=== PATIENT | female | born 1975 | race Caucasian/White ===

== ENCOUNTER → 2022-03-21 | Outpatient (CLI) | payer OTHER, SELFPAY ==
--- NOTE | 2022-03-21 | IMM_PTH ---
PATIENT: AKIN ALFORD LOC: [facility] U#:[id number] AGE/SX: 47/F ROOM: RE03/21/[address]: Dr. Carlos Rasmussen MD : 1975 BED: DIS: 03/21/2022 SPEC #: [id number] RECD: 03/22/22 13:29 STATUS: THUAN REQ #: [id number] SHERWIN: 03/21/22 00:[address]: Carlos Rasmussen DEPT: IMMUNOHISTOCHEMISTRY RECD BY: Lynne Lin ENTERED: 03/22/22 13:31 SP TYPE: IMMUNO OTHR DR: Dr. Patti Staton DO Tissues: Right breast, NOS Procedures: SMA (add) CALPONIN-1 (add) CK5-6 (add) CK7 (add) P53 (add) Pankeratin (initial) P40 (add) PHYSICIAN & INSTITUTION [place] [id number] SPECIMEN INFORMATION: Tissue Source: Right breast Clinical Info: Grouped pleomorphic calcifications in right breast Specimen Number: [id number] #2 CPT code: 05969, 16203 x6 METHODOLOGY: Deparaffinized sections of prefer/formalin-fixed tissue or PAP/DQ stained slides are incubated with monoclonal/polyclonal antibodies/oligonucleotide probes. Localization is made via biotin free immunoperoxidase method. Appropriate controls are performed and reacted as expected. Results on target cell population are indicated in the following table: RESULTS: ANTIBODY / CLONE RESULT Block 2 AE1-3 (AE1/AE3/PCK26) positive CK7 (OV-TL12/30) positive Calponin-1 (UW576C) positive Actin (1A4) positive CK5-6 (D5 & 1684) positive P40 (BC28) positive P53 (DO-7) negative These tests were developed and their performance characteristics determined by [facility]. They may not have been cleared or approved by the U.S. Food and Drug Administration. The FDA has determined that such clearance or approval is not necessary. The above immunohistochemical/dualISH markers are ordered and reviewed by the Pathologist. INTERPRETATION: Right breast, stereotactic biopsy: Consistent with adenosis. AM:margaret 03/23/2022
--- NOTE | 2022-03-21 12:45 | BRBX_PTH ---
PATIENT: AKIN ALFORD LOC: [facility] U#:[id number] AGE/SX: 47/F ROOM: RE03/21/[address]: Dr. Carlos Rasmussen MD : 1975 BED: DIS: 03/21/2022 SPEC #: [id number] RECD: 03/21/22 13:20 STATUS: THUAN REIsael #: [id number] SHERWIN: 03/21/22 12:[address]: Carlos Rasmussen DEPT: SURGICAL PATHOLOGY RECD BY: Tatum Jackson ENTERED: 03/21/22 14:01 SP TYPE: BREAST BX OTHR DR: Dr. Patti Staton, DO Tissues: Right breast, NOS Procedures: Surgery Specimen Level IV HEADER OPERATION: Right breast stereotactic biopsy PRE-OP DIAGNOSIS: Grouped pleomorphic calcifications in right breast TISSUE SUBMITTED: Right breast core tissue ISCHEMIC TIME: 2 minutes FIXATION TIME: 6.5 hours MICROSCOPIC DIAGNOSIS Right breast, stereotactic core biopsy: Adenosis with clustered microcalcifications. Mild fibrocystic change. Focal intraductal hyperplasia without atypia. No evidence of malignancy. See comment. AM:margaret 03/22/2022 COMMENT Immunohistochemistry ([id number]) supports the above diagnosis. MICROSCOPIC DESCRIPTION Slides are reviewed. GROSS DESCRIPTION Received in fixative is one container labeled with the patient's name and designated right breast. The specimen consists of multiple elongated fragments of lockhart-yellow fibroadipose tissue that in aggregate measure 6 x 2.5 x 0.3 cm. The entire specimen is submitted in three cassettes. / SJ:margaret 03/21/2022 TC:3 CPT: 66055
--- NOTE | 2022-03-21 13:47 | HP.PCM_ITS ---
History and Physical Date of Admission: 03/21/22 HISTORY AND PHYSICAL - BREAST COMPLAINT ? Pippa Trevino 1975 ? ? REFERRING PHYSICIAN: No ref. provider found ? CHIEF COMPLAINT: Microcalcifications of the breast (primary encounter diagnosis) ? HPI: The patient is a 47 year old female with a complaint of an abnormal mammogram. The patient had a mammogram without ultrasound on 02/09/22 which demonstrated microcalcifications of the right breast: ? ? The patient denies a history of breast masses. She does perform a self breast exam routinely. She notes no skin changes. She denies nipple discharge. She notes no axillary masses. She notes no family history of breast problems. She notes no significant breast trauma or breast difficulties in the past. ? PAST MEDICAL HISTORY PAST MEDICAL HISTORY Diagnosis Date ? Acute cholecystitis ? ? Cholecystitis ? ADHD ? ? Calculus of gallbladder without mention of cholecystitis or obstruction ? ? Cholelithiasis ? Depression ? ? Diabetes mellitus without mention of complication ? ? Diabetes mellitus type 2 ? Fibrillary glomerulonephritis ? ? Tobacco use ? ? ? PAST SURGICAL HISTORY PAST SURGICAL HISTORY Procedure Laterality Date ? LAPAROSCOPY SURG CHOLECYSTECTOMY ? 05/13 ? Cholecystectomy, lap ? MED INC ALL EX DRUG ? ? ? TONSILLECTOMY PRIMARY/SECONDARY <AGE 12 ? ? ? Tonsillectomy ? ? ? CURRENT MEDICATIONS Current Outpatient Medications Medication Sig Dispense Refill ? furosemide (LASIX) 40 mg tablet Take 1 tablet by mouth once daily as needed. 30 tablet 2 ? lisinopril (ZESTRIL, PRINIVIL) 40 mg tablet Take 1 tablet by mouth once daily. 90 tablet 3 ? chlorthalidone (HYGROTON) 25 mg tablet Take 1 tablet by mouth once daily. 90 tablet 3 ? NIFEdipine ER (PROCARDIA XL) 60 mg 24 hr tablet Take 1 tablet by mouth once daily. 90 tablet 0 ? insulin glargine U-300 conc (TOUJEO) 300 unit/mL (1.5 mL) Inject 30 Units subcutaneously daily at bedtime. 3 Each 3 ? Lancets lancets Test Three times a day. Insulin Dep? No E11.9 DM 2 200 Each 4 ? insulin needles, DISPOSABLE, (BD INSULIN PEN NEEDLE UF) 31 gauge x 5/16 Use with lantus injection daily 100 Each 0 ? atorvastatin (LIPITOR) 20 mg tablet Take 1 tablet by mouth once daily. 90 tablet 3 ? blood sugar diagnostic (BLOOD GLUCOSE TEST) test strip Test 3 times daily, Insulin Dep? No E11.9 DM 2 300 Strip 4 ? dapagliflozin (FARXIGA) 5 mg tablet Take 1 tablet by mouth daily with breakfast. 90 tablet 3 ? alcohol swabs (ALCOHOL PADS) padm Test Three times a day. Insulin Dep? No E11.9 DM 2 200 Each 4 ? Current Facility-Administered Medications Medication Dose Route Frequency Provider Last Rate Last Admin ? perflutren lipid microspheres 1.3 mL in NaCl (PF) 0.9% 10 mL injection (DEFINITY) INTRAVENOUS DIRECTED PRN Ruby Ratliff PA-C ? sodium chloride 0.9 % (flush) 10 mL (BD POSIFLUSH) 10 mL INTRAVENOUS DIRECTED PRN Ruby Ratliff PA-C ? Facility-Administered Medications Ordered in Other Visits Medication Dose Route Frequency Provider Last Rate Last Admin ? NaCl 0.9% iv infusion 30 mL/hr INTRAVENOUS CONTINUOUS Paolo Osborn MD ? ? ALLERGIES: Patient has no known allergies. ? PERSONAL HISTORY: SOCIAL HISTORY Social History ? Tobacco Use ? Smoking status: Every Day ? ? Packs/day: 0.50 ? ? Years: 14.00 ? ? Pack years: 7.00 ? ? Types: Cigarettes ? Smokeless tobacco: Never Substance Use Topics ? Alcohol use: No ? ? Comment: Rarely ? Drug use: No ? FAMILY HISTORY: FAMILY HISTORY FAMILY HISTORY Problem Relation Age of Onset ? COPD Mother ? ? Diabetes Father ? ? Stroke Father 75 ? Heart Attack Father 75 ? ? REVIEW OF SYMPTOMS: The review of systems data was entered by the nurse and reviewed by me ? Nursing Notes: Temitope Francis RN 02/14/2022 4:05 PM Signed REVIEW OF SYSTEMS: General: The patient denies fatigue, NOTES weight loss, denies weight gain, denies feeling hot, and denies feelings of cold. Eyes: The patient denies glaucoma, denies eye injury/surgery, does not wear glasses or contacts. Ear/Nose/Throat: The patient denies allergies, denies hayfever, denies ear infections, and denies bloody noses. Cardiovascular: The patient denies chest pain, denies heart disease, NOTES high blood pressure,denies cardiac stent, denies prior heart attack, denies irregular heart beat, NOTES high cholesterol, denies poor circulation, denies heart failure, other cardiac issues, denies claudication, denies cold feet, denies peripheral arterial stent. Respiratory: The patient denies tuberculosis, denies pneumonia, denies frequent cough, denies pulmonary embolism, denies shortness of breath, and denies coughing up blood. Gastrointestinal: The patient denies difficulty swallowing, denies acid reflux, denies ulcers, denies vomiting, denies jaundice/hepatitis, denies gallbladder problems, denies black or tarry stools, denies hemorrhoids, denies bleeding from rectum, denies diverticulitis, denies constipation, denies diarrhea, denies loss of stool control, and denies hernias. Kidney/Bladder: The patient denies kidney stones, denies urine infections, and denies bloody urine. Skin: The patient denies a history of skin cancer, denies bleeding/changing moles, and denies a history of skin rash. Neurologic: The patient denies a history of epilepsy/convulsions, denies headaches, denies head/spinal injuries, and denies stroke/TIA. Psychiatric: The patient denies psychiatric medications, NOTES depression, and denies voices, denies substance abuse. Endocrine: The patient denies thyroid disorders, NOTES diabetes, and denies hormonal problems. Hematologic: The patient denies a history of bruising, denies bleeding, and denies anemia, denies blood clots. Infections: The patient denies a history of measles and mumps, denies rheumatic fever, and denies sexually transmitted diseases. Musculoskeletal: The patient denies back pain/injury, denies back problems, denies sciatica, denies knee/foot trouble, denies arthritis, or denies gout. ? ? When was patient's last Mammogram screening? 02/09/22 ? Last Colonoscopy: 01/12/2022 ? Temitope Francis RN PHYSICAL EXAMINATION: ? General: The patient is 47 year old female, well nourished, well hydrated in no acute distress. The patient is oriented to time, place, and person. ? VITALS: Blood pressure 120/80, pulse 104, temperature 36.7 ?C (98 ?F), height 160 cm (5' 3), weight 67.7 kg (149 lb 3.2 oz), last menstrual period 12/18/2021, SpO2 98 %. Body mass index is 26.43 kg/m?. ? HEENT: Normal cephalic, ataumatic, pupils are equally round, sclera are anicteric, mucous membranes are moist, oropharynx is clear. Neck has no masses, asymmetry or lymphadenopathy. Thyroid is unremarkable. ? Respiratory: Clear to auscultation and percussion. Normal respiratory excursion and pattern. ? Cardiac: Examination is regular rate and rhythm. ? Abdominal exam: Soft, nontender, with no palpable masses. No h epatosplenomegaly. No palpable hernias. ? Rectal exam: exam deferred Extremities: no clubbing, cyanosis or edema. No adenopathy. ? Breast: Visual inspection reveals no retractions, nipple inversion, or skin changes. Palpation of the right breast reveals no dominant or suspicious masses. Palpation of the left breast reveals no dominant or suspicious masses. Axillary exam demonstrates no suspicious masses in either the left or right axilla. There is no nipple discharge expressed from either the left or right breast. ? LABORATORY VALUES: As Noted ? RADIOLOGIC STUDIES: As Noted ? Assessment IMPRESSION: Microcalcifications of the breast (primary encounter diagnosis) ? PLAN: I plan to perform a stereotactic biopsy of the right breast. The planned surgical procedure was discussed extensively with the patient. The risks, benefits, anticipated outcomes and possible complications were mentioned. My staff has also explained the procedure in understandable terms and the patient w as given the option to take printed material concerning the planned procedure. The patient had the opportunity to ask questions concerning the planned procedure. The patient freely consents to the planned procedure. ? ? Diagnoses: (R92.0) Microcalcifications of the breast (primary encounter diagnosis) ? ? ? Return to Clinic: The patient is instructed to follow-up with me 1 week post op eratively. ? Carlos Rasmussen III, MD I have examined the patient and the H&P has been reviewed. There are no clinical changes since date of exam.
--- NOTE | 2022-03-21 13:49 | OP.PCM_ITS ---
Problems Associated Problem List Diagnoses (1) Microcalcifications of the breast: Report of Operation Date of Procedure: 03/21/22 Pre-Operative Diagnosis: Microcalcifications right breast Post-Operative Diagnosis: Same Surgery/Procedure Performed:: Right stereotactic breast biopsy Surgeon: Carlos Rasmussen position description manager: None Type of Anesthesia: Local Description of Procedure: Patient was brought into the mammography unit. Right breast was brought down through the fissure table. A lateral to medial view was obtained. Microcalcifications were identified. ?10 degree views were obtained. I targeted on the microcalcifications. I prepped the breast with Betadine. I injected 1% lidocaine plain. Skin sylvia was made. The needle was placed in the prefire position and 2 more stereotactic views were obtained. Microcalcifications were appropriately targeted. I fired the needle. 360 degrees circumferential biopsies were obtained. X-ray my specimen. Microcalcifications were identified. Backed the needle off 7 mm. Placed a small titanium clip. Took another stereo view showing the clip to be in good placement. Patient was taken out Steri-Strips were applied sterile dressings were applied standard mammogram was obtained she tolerated the procedure well. Admit VTE Documentation VTE Present on Admission: No VTE Mechan Device Prophylaxis: None VTE Pharm Prophylaxis ordered?: No Reason prophylaxis not ordered:: Treatment Not Indicated
== END | disposition home or self-care (01) ==
LOC: BIRAD 12:09
PROVIDERS: PCP Internal Medicine; Visit Provider Surgery
DX: N60.21 Fibroadenosis of right breast (principal); E11.9 Type 2 diabetes mellitus without complications; Z79.4 Long term (current) use of insulin; N62 Hypertrophy of breast; F17.210 Nicotine dependence, cigarettes, uncomplicated; Z79.899 Other long term (current) drug therapy
CPT/HCPCS: 19081; 88305; 88341; 88342; J7050; A4648